=== PATIENT | male | born 1960 | race Caucasian/White ===

== ENCOUNTER 2021-01-13 14:09 | Outpatient (REF) | payer OTHER, SELFPAY | END 2021-01-13 14:10 | disposition home or self-care (01) | LOC: HO.BBR 14:09 | PROVIDERS: Visit Provider Internal Medicine | DX: Z13.89 Encounter for screening for other disorder (principal) ==

== ENCOUNTER 2021-03-08 15:30 | Outpatient (REF) | payer OTHER, SELFPAY | END 2021-03-08 15:31 | disposition home or self-care (01) | LOC: HO.BBR 15:30 | PROVIDERS: Visit Provider Internal Medicine | DX: Z13.89 Encounter for screening for other disorder (principal) ==

== ENCOUNTER 2021-05-15 15:20 | Outpatient (REF) | payer OTHER, SELFPAY | END 2021-05-15 15:21 | disposition home or self-care (01) | LOC: HO.BBR 15:20 | PROVIDERS: Visit Provider Internal Medicine | DX: Z13.89 Encounter for screening for other disorder (principal) ==

== ENCOUNTER 2021-07-18 15:35 | Outpatient (REF) | payer OTHER, SELFPAY | END 2021-07-18 15:36 | disposition home or self-care (01) | LOC: HO.BBR 15:35 | PROVIDERS: Visit Provider Internal Medicine | DX: Z13.89 Encounter for screening for other disorder (principal) ==

== ENCOUNTER 2021-09-19 15:22 | Outpatient (REF) | payer OTHER, SELFPAY | END 2021-09-19 15:23 | disposition home or self-care (01) | LOC: HO.BBR 15:22 | PROVIDERS: Visit Provider Internal Medicine | DX: Z13.89 Encounter for screening for other disorder (principal) ==

== ENCOUNTER 2023-09-17 15:19 | Outpatient (REF) | payer OTHER, SELFPAY | END 2023-09-17 15:20 | disposition home or self-care (01) | LOC: HO.BBR 15:19 | PROVIDERS: Visit Provider Internal Medicine | DX: Z13.89 Encounter for screening for other disorder (principal) ==